=== PATIENT | female | born 2000 | race African-American/Black ===

== ENCOUNTER 2023-06-22 19:20 | Emergency (ER) | payer SELFPAY ==
[2023-06-22 20:04] VITALS: BP 109/82; PULSE 69; RESP 20; TEMP 37.2; O2SAT 100; BMI 33.1
[2023-06-22 20:17] LABS: HCG Quantitative <1 mIU/mL
--- NOTE | 2023-06-22 20:34 | ED_ITS ---
Documented by User: Sienna Fuentes 06/22/23 20:36 HPI - General Adult General Chief complaint: Abdominal Pain Stated complaint: weeks unknown, wants blood work Time Seen by Provider: 06/22/23 19:31 Source: patient Mode of arrival: walk-in Limitations: no limitations History of Present Illness HPI narrative: 22-year-old female presented here wanting a test. She states she had home test at home had faint lines. She's had abdominal bloating was concern for possible . She is alert and oriented no acute distress no vaginal bleeding or pain. Related Data Home Medications Medication Instructions Recorded Confirmed ferrous sulfate 325 mg (65 mg mg 06/22/23 iron) tablet Allergies Allergy/AdvReac Type Severity Reaction Status Date / Time No Known Drug Allergies Allergy Verified 06/22/23 20:11 Review of Systems ROS Narrative All Systems are negative except as noted/marked.All systems reviewed and otherwise negative PFSH PFSH Social History Smoking status: Never smoker Exam Narrative Exam Narrative: Nurses note and vital signs reviewed and patient is not hypoxic. General: The patient appears well and in no apparent distress. Patient is resting comfortably on cart. Skin: Warm, dry, no pallor noted. There is no rash noted. Head: Normocephalic, atraumatic Cardiovascular: Regular Rate and Rhythm Respiratory: Patient is in no distress, no accessory muscle use, lungs are clear to auscultation, no wheezing, rales or rhonchi Back: non-tender, no CVA tenderness bilaterally to percussion. GI: Normal bowel sounds, no tenderness to palpation, no masses appreciated. No rebound, guarding, or rigidity noted. Musculoskeletal: The patient has no evidence of calf tenderness, no pitting edema, symmetrical pulses noted bilaterally Neurological: A&O x4, normal speech Psychiatric: Cooperative Constitutional Vital Signs, click to edit/add: Last Vital Signs Temp 98.9 F 06/22/23 20:04 Pulse 69 06/22/23 20:04 Resp 06/22/23 20:04 BP 109/82 06/22/23 20:04 Pulse Ox 100 06/22/23 20:04 O2 Del Method Room Air 06/22/23 20:04 Course Vital Signs Vital signs: Vital Signs Temperature 98.9 F 06/22/23 20:04 Pulse Rate 69 06/22/23 20:04 Respiratory Rate 06/22/23 20:04 Blood Pressure 109/82 06/22/23 20:04 Pulse Oximetry 100 06/22/23 20:04 Oxygen Delivery Method Room Air 06/22/23 20:04 Temperature 98.9 F 06/22/23 20:04 Pulse Rate 69 06/22/23 20:04 Respiratory Rate 20 06/22/23 20:04 Blood Pressure 109/82 06/22/23 20:04 Pulse Oximetry 100 06/22/23 20:04 Oxygen Delivery Method Room Air 06/22/23 20:04 Medical Decision Making MDM Narrative Medical decision making narrative: Patient presented here with twenty-eight Quant test. She had a test at home that showed faint line seems concerned. She states she took another test showed more faint lines. She concerned possibly anything states she been bloated recently. Quant here is less than one. Patient made aware results. Discharged home. 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 Medical Records Medical records reviewed: Yes I reviewed the patient's medical records Lab Data Lab results reviewed: Yes I reviewed the patient's lab results Labs: Lab Results 06/22/23 Range/Units 19:50 HCG, Quant <1 mIU/mL Discharge Plan Discharge Chief Complaint: Abdominal Pain Clinical Impression: Abdominal bloating Patient Disposition: Home, Self-Care Time of Disposition Decision: 20:33 Condition: Good Prescriptions / Home Meds: No Action ferrous sulfate 325 mg (65 mg iron) tablet Instructions: Gas and Bloating (ED) Stand Alone Forms: Portal Instructions Referrals: [facility] [Primary Care Provider] - 1 week Discharge Date/Time: 06/22/23 20:38 Documented by User: Levon Mosquera 06/22/23 21:16 HPI - General Adult General Chief complaint: Abdominal Pain Stated complaint: weeks unknown, wants blood work Time Seen by Provider: 06/22/23 19:31 Related Data Home Medications Medication Instructions Recorded Confirmed ferrous sulfate 325 mg (65 mg mg 06/22/23 iron) tablet Allergies Allergy/AdvReac Type Severity Reaction Status Date / Time No Known Drug Allergies Allergy Verified 06/22/23 20:11 PFSH PFSH Social History Smoking status: Never smoker Exam Constitutional Vital Signs, click to edit/add: Last Vital Signs Temp 98.9 F 06/22/23 20:04 Pulse 69 06/22/23 20:04 Resp 20 06/22/23 20:04 BP 109/82 06/22/23 20:04 Pulse Ox 100 06/22/23 20:04 O2 Del Method Room Air 06/22/23 20:04 Course Vital Signs Vital signs: Vital Signs Temperature 98.9 F 06/22/23 20:04 Pulse Rate 69 06/22/23 20:04 Respiratory Rate 20 06/22/23 20:04 Blood Pressure 109/82 06/22/23 20:04 Pulse Oximetry 100 06/22/23 20:04 Oxygen Delivery Method Room Air 06/22/23 20:04 Temperature 98.9 F 06/22/23 20:04 Pulse Rate 69 06/22/23 20:04 Respiratory Rate 20 06/22/23 20:04 Blood Pressure 109/82 06/22/23 20:04 Pulse Oximetry 100 06/22/23 20:04 Oxygen Delivery Method Room Air 06/22/23 20:04 Medical Decision Making MDM Narrative Medical decision making narrative: Patient presented here for confirmatory quant test. She had 2 tests at home that showed faint lines and wasnt sure if false positive. She states she been bloated recently. Quant here is less than one. Patient made aware results. Discharged home. 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 Lab Data Labs: Lab Results 06/22/23 Range/Units 19:50 HCG, Quant <1 mIU/mL Discharge Plan Discharge Chief Complaint: Abdominal Pain Clinical Impression: Abdominal bloating Patient Disposition: Home, Self-Care Time of Disposition Decision: 20:33 Condition: Good Prescriptions / Home Meds: No Action ferrous sulfate 325 mg (65 mg iron) tablet Instructions: Gas and Bloating (ED) Stand Alone Forms: Portal Instructions Referrals: [facility] [Primary Care Provider] - 1 week Discharge Date/Time: 06/22/23 20:38
== END 2023-06-22 20:38 | disposition home or self-care (01) ==
PROVIDERS: Emergency Provider Emergency Medicine
DX: Z32.02 Encounter for pregnancy test, result negative (principal); R14.0 Abdominal distension (gaseous)
CPT/HCPCS: 36415; 84702; 99283